=== PATIENT | male | born 1940 | race Caucasian/White ===

== ENCOUNTER 2018-04-06 09:55 | Outpatient (CLI) | payer MEDICARE, BC ==
[~2018-04-06] VITALS: Ht 180.3 cm; Wt 145.5 kg
--- NOTE | ~2018-04-06 | HEMODYNAMI ---
PATIENT:RIANNA DELCID MEDICAL RECORD: [id number] : 44 LOCATION:[facility] ADMISSION DATE: 04/06/18 Generatedon:04/06/201813:45 Patient name: RIANNA DELCID Patient #: [id number] SSN: : 1940 Date of study: 04/06/2018 Page: Of Hemodynamic Procedure Report Patient Data Patient Demographics Procedure consent was obtained First Name: RIANNA Gender: Male Last Name: FARHANA : 1940 Middle Initial: L Age: 78 year(s) Patient #: [id number] Race: Unknown Additional ID: [id number] Contact details Address: [address] [place] [address] State: [place] City: [place] Zip code: [address] Past Medical History Allergies: No known allergies Admission Admission Data Admission Date: 04/06/2018 Admission Time: 9:55 Height (in.): 70 BSA: 2.55 (m2) Height (cm.): 177.8 BMI: 45.91 (kg/m2) Weight (lbs.): 320 Weight (kg.): 145.15 Procedure Procedure Types Cath Procedure Diagnostic Procedure Sedation Charges Moderate Sedation up to 15 minutes Peripheral Cath Diagnostic Procedure Meters Superintendent Peripheral Procedures Ymhsg-Garsbdw-Bjs-Off Procedure Description Procedure Date Procedure Date: 04/06/2018 Procedure Start Time: 13:27 Procedure End Time: 13:39 Procedure Staff Name Function Keron Romano MD Performing Physician Sarah Cuba RT Monitor Shirley Pino RN Nurse Vadim Nino RT Scrub Liliane Roy RT Rn Bone Marrow Transplant Procedure Data Cath Procedure Fluoroscopy Diagnostic fluoroscopy Total fluoroscopy Time: 1.4 time: 1.4 min min Diagnostic fluoroscopy Total fluoroscopy dose: 625 dose: 625 mGy mGy Contrast Material Contrast Material Type Amount (ml) Isovue 300 136 Entry Location Entry Primary Successful Side Size Upsize Upsize Entry Closure Succes sful Closure Location (Fr) 1 (Fr) 2 (Fr) Remarks Device Remarks Femoral Right 5 Fr Exoseal artery Estimated blood loss: 5 ml Diagnostic catheters Device Type Used For End Catheter Placement DIAGNOSTIC UF 5Fr Procedure catheter ([id number]) Procedure Complications No complications Procedure Medications Medication Administration Route Dosage 0.9% NaCl I.V. 100 ml/hr Oxygen etCO2 Nasal cannula 2 l/min Lidocaine 2% 20 Heparin Flush Bag added to field 2 bags (1000units/500ml NS) Versed I.V. 2 mg Fentanyl I.V. 100 mcg Versed I.V. 2 mg Fentanyl I.V. 50 mcg Versed I.V. 2 mg Fentanyl I.V. 50 mcg Hemodynamics Rest BSA: 2.55 (m2) O2 Consumption: Estimated: 346.8 (ml/min) O2 Consumption indexed: Estimated:136 (ml/min/m) Pre Cath Intra NCS Post Cath Vital Signs Time Heart Resp SPO2 etCO2 NIBP (mmHg) Rhythm Pain Sedation Rate (ipm) (%) (mmHg) Status Level (bpm) 13:09:57 68 15 98 34.3 172/96(149) NSR 0 (11) 10(A) , No pain 13:14:27 67 14 98 32.1 157/98(136) NSR 0 (11) 10(A) , No pain 13:18:51 69 15 98 30.5 167/91(132) NSR 0 (11) 10(A) , No pain 13:23:15 68 32 98 35 168/100(130) NSR 0 (11) 10(A) , No pain 13:28:39 71 13 98 36 165/107(145) NSR 0 (11) 10(A) , No pain 13:34:29 75 15 98 32.4 184/97(142) NSR 0 (11) 10(A) , No pain 13:40:30 71 25 99 26.8 174/103(124) NSR 0 (11) 10(A) , No pain Medications Time Medication Route Dose Verified Delivered Reason Notes Effe ctiveness by by 13:03:11 0.9% NaCl I.V. 100 Keron Shirley used for ml/hr Juan Antonio Pino recreational specialist 13:03:21 Oxygen etCO2 2 Keron Shirley used for Nasal l/min Juan Antonio Pino procedure cannula RN 13:03:26 Lidocaine 2% 20ml Keron Keron used for vial Juan Antonio Romano MD procedure 13:03:33 Heparin Flush added 2 Keron Keron used for Bag to bags Juan Antonio Romano MD procedure (1000units/500ml field NS) 13:19:13 Versed I.V. 2 mg Keron Shirley for Juan Antonio Pino sedation RN 13:19:19 Fentanyl I.V. 100 Keron Shirley for mcg Juan Antonio Pino sedation RN 13:25:13 Versed I.V. 2 mg Keron Shirley for Juan Antonio Pino sedation RN 13:25:19 Fentanyl I.V. 50 Keron Shirley for mcg Juan Antonio Pino sedation RN 13:30:11 Fentanyl I.V. 50 Keron Shirley for mcg Juan Antonio Pino sedation RN 13:30:57 Versed I.V. 2 mg Keron Shirley for Juan Antonio Pino sedation ordnance engineering technician Log Time Note 13:00:49 Time tracking: Regular hours (M-F 7:00 - 5:00) 13:00:54 Plan of Care:Hemodynamics will remain stable., Cardiac rhythm will remain stable., Comfort level will be maintained., Respiratory function will remain adequate., Patient/ family verbilizes understanding of procedure., Procedure tolerated without complication., Recovers from procedure without complications.. 13:01:06 Liliane Roy RT(R) sent for patient. Start room use. 13:01:55 Signed procedure consent form obtained from patient. 13:02:07 H&P Date Dictated: 03/25/2018 Within 30 days and on chart., H&P Addendum completed by physician on day of procedure. (MUST COMPLETE FOR ALL OUTPATIENTS). 13:02:12 Patient Height : 70 inches 13:02:50 Patient received from Pre/Post Procedure Room to CCL 1 Alert and oriented. Tansferred to table in Supine position. 13:02:52 Warm blankets applied, and eryn hugger turned on for patient comfort. 13:02:52 Correct patient and procedure confirmed by team. 13:02:53 ECG and BP/O2 sat monitors applied to patient. 13:02:54 Pre-procedure instructions explained to patient. 13:02:55 Pre-op teaching completed and patient verbalized understanding. 13:02:56 Family in waiting room. 13:02:59 Patient NPO since Breakfast. 13:03:11 0.9% NaCl 100 ml/hr I.V. was administered by Shirley Pino RN; used for procedure; 13:03:21 Oxygen 2 l/min etCO2 Nasal cannula was administered by Shirley Pino RN; used for procedure; 13:03:26 Lidocaine 2% 20ml vial was administered by Keron Romano MD; used for procedure; 13:03:33 Heparin Flush Bag (1000units/500ml NS) 2 bags added to field was administered by Keron Romano MD; used for procedure; 13:08:36 Vital chart was started 13:15:56 Rhythm: sinus rhythm 13:15:57 Full Disclosure recording started 13:16:04 Patient allergic to No known allergies 13:16:07 Is the patient allergic to Iodine/contrast media? No. 13:16:08 Is patient on blood thinner?No 13:16:09 Patient diabetic? Yes. 13:16:10 If diabetic: On Metformin? Yes 13:16:13 If on Metformin: Last Dose? 04/02/2018 13:16:16 Previous problem with sedation/anesthesia? No ? 13:16:17 Snore? Yes 13:16:19 Sleep apnea? Yes 13:16:20 Deviated septum? No 13:16:34 Opens mouth fully? Yes 13:16:36 Sticks out tongue? Yes 13:16:42 Airway obstruction? No ? 13:16:44 Dentures? No ? 13:16:50 Patient pain scale 0/10 ?. 13:16:56 IV patent on arrival in right antecubital with 0.9% NaCl at [facility]. 13:18:32 Bilateral groins area was prepped with chlora-prep and draped in sterile fashion 13:18:33 Alarms reviewed by R. N. 13:18:33 Sharps counted by scrub and verified by R.N. 13:18:35 --------ALL STOP TIME OUT------ 13:18:36 Final Timeout: patient, procedure, and site verified with staff and physician. All members of the team are in agreement. 13:18:39 Bilateral groins site verified by team. 13:18:42 Physical assessment completed. ASA score P 2 - A patient with mild systemic disease as per Keron Romano MD. 13:18:46 Sedation plan: IV Moderate Sedation Medication:Versed, Fentanyl 13:19:05 Use device set CATH PACK 13:19:06 ACIST Syringe (29977) opened to sterile field. 13:19:07 ACIST Hand Control (66442) opened to sterile field. 13:19:07 ACIST Manifold (70163) opened to sterile field. 13:19:07 Medline Cath Pack ([id number]) opened to sterile field. 13:19:08 Bag Decanter (2002S) opened to sterile field. 13:19:08 DIAGNOSTIC WIRE .035 260cm J wire ([id number]) opened to sterile field. 13:19:13 Versed 2 mg I.V. was administered by Shirley Pino RN; for sedation; 13:19:13 SHEATH 5FR Vader ([id number]) opened to sterile field. 13:19:19 Fentanyl 100 mcg I.V. was administered by Shirley Pino RN; for sedation; 13:20:28 Patient Weight : 320 lbs 13:22:14 Zero performed for pressure channel P1 13:25:13 Versed 2 mg I.V. was administered by Shirley Pino RN; for sedation; 13:25:19 Fentanyl 50 mcg I.V. was administered by Shirley Pino RN; for sedation; 13:27:16 Procedure started. 13:27:38 Local anesthetic to right femoral artery with Lidocaine 2% by Keron Romano MD.INITIAL ACCESS ONLY 13:30:11 Fentanyl 50 mcg I.V. was administered by Shirley Pino RN; for sedation; 13:30:13 A 5 Fr sheath was inserted into the Right Femoral artery 13:30:29 A DIAGNOSTIC UF 5Fr catheter ([id number]) was advanced over the wire and used for Procedure. 13:30:57 Versed 2 mg I.V. was administered by Shirley Pino RN; for sedation; 13:32:12 Abdominal angiogram w/ runoff was performed. 13:33:37 Left leg runoff performed. 13:33:58 Right leg runoff performed. 13:35:21 Catheter removed. 13:35:55 EXOSEAL 5Fr (EX500) opened to sterile field. 13:36:39 Sheath removed intact; hemostasis achieved with Exoseal to the Right Femoral artery. 13:37:00 Procedure ended.(Physican Out) 13:37:14 Fluoroscopy time 01.40 minutes. 13:37:18 Fluoroscopy dose: 625 mGy 13:37:18 Flurop Dose total: 625 13:37:21 Contrast amount:Isovue 300 136ml. 13:37:25 Post-op/insertion site Right Femoral artery dressed using a 4 x 4 and Tegaderm. 13:38:25 Post right femoral artery:stable, soft, clean and dry 13:38:28 Post-procedure physical assessment completed. ASA score P 2 - A patient with mild systemic disease as per Keron Romano MD. 13:38:31 Post procedure rhythm: sinus rhythm 13:38:34 Estimated blood loss: 5 ml 13:38:35 Post procedure instruction explained to patient.Patient verbalizes understanding. 13:38:35 Patient needs reinforcement of post procedure teaching. 13:39:03 Procedure type changed to Cath procedure, Diagnostic procedure, Sedation Charges, Moderate Sedation up to 15 minutes, Peripheral Cath Diagnostic Procedure, Meters Superintendent Peripheral Procedures, Iwxhs-Vnrrcbj-Ysj-Off 13:39:20 Procedure and supply charges have been captured, reviewed, submitted and are correct. 13:39:24 Procedure Complication : No complications 13:39:26 Vital chart was stopped 13:39:28 See physician's report for complete and final results. 13:39:30 Report given to Pre/Post Procedure Room. 13:39:33 Patient transfered to Pre/Post Procedure Room with Bed. 13:39:38 Procedure ended. 13:39:38 Full Disclosure recording stopped 13:39:48 End room use (Document Last) Device Usage Item Name Manufacture Quantity Catalog Hospital Part Current Minimal L ot# / Number Charge Number Stock Stock Serial# Code ACIST Acist 1 93125 336674 313213 653182 20 Syringe Medical (08301) Systems Inc ACIST Hand Acist 1 07523 442527 522622 331779 5 Control Medical (96343) Systems Inc ACIST Acist 1 35014 537177 874057 050567 5 Manifold Medical (43917) Systems Inc Medline Medline 1 [id number] 089618 50843 325133 5 Cath Pack ([id number]) Bag Microtek 1 042664 95864 380894 5 Decanter Medical Inc. () DIAGNOSTIC St Mike 1 655673 896419 713414 100999 30 WIRE .035 260cm J wire (649857) SHEATH 5FR Terumo 1 [id number] 946937 189127 481178 40 Vader ([id number]) DIAGNOSTIC Cardinal 1 [id number] 576179 073866 266980 10 UF 5Fr Health catheter ([id number]) EXOSEAL 5Fr Cardinal 1 EX500 687467 686169 969407 10 (EX500) Health Signature Audit Mobile Stage Time Signature Unsigned Intra-Procedure 04/06/2018 Sarah Cuba 1:45:33 PM RT(R) Signatures Monitor : Sarah Cuba Signature : RT Date : Time : [address] [address]
[2018-04-06] MEDS ORDERED: COZAAR100 MG PO (10:20)
[2018-04-06] MEDS ORDERED: HCTZ25 MG PO (10:20)
[2018-04-06] MEDS ORDERED: OMEPRAZOLE20 M1 PO (10:21)
[2018-04-06] MEDS ORDERED: METFORMIN HCL500 M1 PO (10:21)
[2018-04-06] MEDS ORDERED: GLIMEPIRIDE4 MG PO (10:22)
[2018-04-06 10:29] VITALS: BP 158/86; Ht 180.3 cm; Wt 145.5 kg
[2018-04-06 10:44] LABS: BASOPHILS 0.2 % (0-2); EOSINOPHILS 5.3 % (0-7); HEMATOCRIT 41.7 % (42.0-54.0); HEMOGLOBIN 14.2 g/dL (13.5-17.5); IMMATURE GRANULOCYTES 0.1 % (0-5); LYMPHOCYTES 25.5 % (15-50); MCHC 34.1 g/dL (31.0-37.0); MCV 88.2 fL (80.0-100.0); MEAN PLATELET VOLUME 12.4 fL (7.4-10.4); NEUTROPHILS 59.9 % (40-80); PLATELET COUNT 121 10x3/uL (130-400); RBC 4.73 10x6/uL (4.20-6.10); WBC 8.4 10x3/uL (4.8-10.8)
[2018-04-06 10:51] LABS: ANION GAP 11.3 mmol/L (8-16); CALCIUM 8.5 mg/dL (8.5-10.1); CARBON DIOXIDE 27.1 mmol/L (21.0-32.0); CREATININE - SERUM 1.1 mg/dL (0.6-1.3); POTASSIUM - SERUM 4.4 mmol/L (3.5-5.1)
== END 2018-04-06 15:30 | disposition home or self-care (01) ==
LOC: D.CATH 09:55
PROVIDERS: Internal Medicine Cardiovascular Disease
DX: M79.605 Pain in left leg (principal); M79.604 Pain in right leg; I71.4 Abdominal aortic aneurysm, without rupture; Z01.812 Encounter for preprocedural laboratory examination